=== PATIENT | male | born 1960 | race Caucasian/White ===

== ENCOUNTER 2017-11-06 09:43 | Emergency (ER) | payer OTHER ==
[~2017-11-06] VITALS: Ht 177.8 cm; Wt 104.3 kg
[2017-11-06] MEDS ORDERED: METFORMIN HCL500 MG PO (10:01)
[2017-11-06] MEDS ORDERED: PROTONIX 20 MG20 M1 PO (10:02)
[2017-11-06] MEDS ORDERED: AMARYL2 MG PO (10:02)
[2017-11-06] MEDS ORDERED: LIPITOR40 MG PO (10:03)
[2017-11-06] MEDS ORDERED: FENOGLIDE40 MG PO (10:03)
[2017-11-06 10:18] LABS: ABSOLUTE EOSINOPHILS 0.1 thou/uL (0.0-0.7); ABSOLUTE LYMPHOCYTES 1.3 thou/uL (0.8-5.3); ABSOLUTE MONOCYTES 0.9 thou/uL (0.0-1.2); ABSOLUTE NEUTROPHILS 8.3 thou/uL (1.6-8.1); BASOPHILS 0.3 %; EOSINOPHILS 0.6 %; HEMATOCRIT 49.2 % (42.0-52.0); HEMOGLOBIN 16.5 gm/dL (14.0-18.0); LYMPHOCYTES 12.5 %; MCH 29.4 pg (26.0-34.0); MCHC 33.6 g/dL (28.0-37.0); MCV 87.3 fL (80.0-100.0); MONOCYTES 8.1 %; MPV 8.4 fl. (7.2-11.1); NUCLEATED RBCS 0 /100WBC; PLATELET COUNT* 295 thou/uL (150-400); POLYS 78.5 %; RBC 5.63 mil/uL (4.50-6.00); RDW-CV 14.1 % (10.5-14.5); WBC 10.6 thou/uL (4.0-11.0)
[2017-11-06 10:28] LABS: ANION GAP 12 mmol/L (7-16); BUN 26 mg/dL (7-18); CHLORIDE 97 mmol/L (98-107); CO2 25 mmol/L (21-32); CREATININE 1.9 mg/dL (0.6-1.3); GLUCOSE 222 mg/dL (70-99); POTASSIUM 4.1 mmol/L (3.5-5.1); SODIUM 134 mmol/L (136-145)
[2017-11-06 10:39] LABS: ALBUMIN 4.6 g/dL (3.4-5.0); ALKALINE PHOSPHATASE 99 U/L (46-116); LIPASE 83 U/L (73-393); MAGNESIUM 1.6 mg/dL (1.8-2.4); NT-PRO BRAIN NAT PEPTIDE 68 pg/mL (<300); SGOT 29 U/L (15-37); SGPT 32 U/L (30-65); TOTAL BILIRUBIN 3.1 mg/dL (<0.1-1.0); TOTAL PROTEIN 8.6 g/dL (6.4-8.2); TROPONIN-I LEVEL <0.06 ng/mL (<0.06)
[2017-11-06 11:11] LABS: URINE BILIRUBIN NEGATIVE (Negative); URINE BLOOD NEGATIVE (Negative); URINE CLARITY CLEAR; URINE COLOR YELLOW; URINE GLUCOSE-RANDOM NEGATIVE (Negative); URINE KETONES NEGATIVE (Negative); URINE LEUKOCYTES-REFLEX NEGATIVE (Negative); URINE NITRITE-REFLEX NEGATIVE (Negative); URINE PROTEIN NEGATIVE (Negative); URINE SPECIFIC GRAVITY >= 1.030 (1.005-1.030)
[2017-11-06 11:19] LABS: AMP/METHAMP Negative (Negative); BARBITURATES Negative (Negative); BENZODIAZEPINES Negative (Negative); COCAINE Negative (Negative); METHADONE Negative (Negative); OPIATES Negative (Negative); PCP Negative (Negative); THC Negative (Negative)
[2017-11-06] MEDS ORDERED: ZOFRAN4 MG PO (11:31)
[2017-11-06 12:02] VITALS: BP 114/78
--- NOTE | 2017-11-09 11:02 | EKG ---
[place] [address] ELECTROCARDIOGRAM REPORT Name: VIJAY VASQUEZ Room: [facility] Tracey#: [id number] Admission: 11/06/17 Attend Phys: Discharge: 11/06/17 Date of : 60 Report #: [id number] THIS REPORT FOR: //name// 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: [employer] : 1960 Requested By: Pal Geronimo Order Number: [id number] MD: Hollis Valentin Measurements Intervals [place] Rate: 71 P: 30 [place]: 144 QRS: -46 QRSD: 128 T: 15 QT: 390 QTc: 424 Interpretive Statements Sinus rhythm RBBB and LAFB Borderline ST elevation, anterolateral leads No previous ECG available for comparison Electronically Signed On 11-09-2017 11:01:53 CDT by Hollis Valentin [email or web address] <ELECTRONICALLY SIGNED> By: Hollis Valentin MD, [facility] 11/09/17 1101 1012 1012 Hollis Valentin MD, FACC /EPI
== END 2017-11-06 12:04 | disposition home or self-care (01) ==
LOC: M.ERS 09:43
PROVIDERS: Emergency Medicine
DX: E86.0 Dehydration (principal); M62.82 Rhabdomyolysis; E11.9 Type 2 diabetes mellitus without complications; Z96.652 Presence of left artificial knee joint; Z90.49 Acquired absence of other specified parts of digestive tract; F17.210 Nicotine dependence, cigarettes, uncomplicated; Z88.0 Allergy status to penicillin